=== PATIENT | female | born 1975 | race Two or more races ===

== ENCOUNTER 2017-06-30 14:26 | Emergency (ER) | payer OTHER ==
[~2017-06-30] VITALS: Ht 149.9 cm; Wt 57.2 kg
[~2017-06-30 14:26] MED LIST: IBUPROFEN800 MG PO; ORPH100T PO; ULTRACET PO
== END 2017-06-30 17:41 | disposition home or self-care (01) ==
LOC: ER 14:26
DX: M54.5 Low back pain (principal)

== ENCOUNTER 2017-09-15 17:27 | Emergency (ER) | payer OTHER ==
[~2017-09-15] VITALS: Ht 149.9 cm; Wt 57.2 kg
== END 2017-09-15 19:27 | disposition home or self-care (01) ==
LOC: ER 17:27
DX: M79.1 Myalgia (principal)

== ENCOUNTER 2018-03-03 09:35 | Emergency (ER) | payer OTHER ==
[~2018-03-03] VITALS: Ht 149.9 cm; Wt 56.7 kg
== END 2018-03-03 14:13 | disposition home or self-care (01) ==
LOC: ER 09:35
DX: R10.32 Left lower quadrant pain (principal)

== ENCOUNTER 2018-07-27 12:32 | Emergency (ER) | payer OTHER ==
[~2018-07-27] VITALS: Ht 149.9 cm; Wt 59.0 kg
[2018-07-27] MEDS ORDERED: ZITHROMAX500 MG PO (15:09)
[2018-07-27] MEDS ORDERED: FLONASE ALLERG9.9 ML NASAL (15:09)
== END 2018-07-27 15:24 ==
LOC: ER 12:32
DX: J04.0 Acute laryngitis (principal)

== ENCOUNTER 2018-10-28 19:15 | Emergency (ER) | payer OTHER ==
[~2018-10-28] VITALS: Ht 149.9 cm; Wt 54.0 kg
[~2018-10-28 19:15] MED LIST changes: +FLONASE ALLERG9.9 ML NASAL; +ZITHROMAX500 MG PO
== END 2018-10-28 21:18 | disposition home or self-care (01) ==
LOC: ER 19:15
DX: M62.830 Muscle spasm of back (principal)

== ENCOUNTER → 2019-05-25 | Outpatient (CLI) | payer OTHER | END | disposition home or self-care (01) | LOC: MAMO-SONO 08:30 → SONOGRAMA 10:13 | DX: R10.2 Pelvic and perineal pain (principal) ==

== ENCOUNTER 2019-12-23 10:34 | Outpatient (CLI) | payer OTHER | END 2019-12-23 10:44 | disposition home or self-care (01) | LOC: MAMO-SONO 10:34 | PROVIDERS: ATTEND General Practice | DX: Z12.31 Encounter for screening mammogram for malignant neoplasm of breast (principal); Z12.39 Encounter for other screening for malignant neoplasm of breast; R10.13 Epigastric pain ==

== ENCOUNTER 2021-05-17 17:36 | Emergency (ER) | payer OTHER ==
[~2021-05-17] VITALS: Ht 149.9 cm; Wt 61.2 kg
[2021-05-17] MEDS ORDERED: ZYRTEC10 M3 PO (21:03)
[2021-05-17] MEDS ORDERED: NASONEX17 GM NASAL (21:03)
[2021-05-17] MEDS ORDERED: TUSNEL LIQUID178 ML PO (21:03)
== END 2021-05-17 21:12 | disposition home or self-care (01) ==
LOC: ER 17:36
DX: R09.81 Nasal congestion (principal); Z03.818 Encounter for observation for suspected exposure to other biological agents ruled out

== ENCOUNTER 2023-04-18 17:41 | Emergency (ER) | payer OTHER ==
[~2023-04-18] VITALS: Ht 162.6 cm; Wt 58.5 kg
[~2023-04-18 17:41] MED LIST changes: +NASONEX17 GM NASAL; +OSEL75CA PO; +TUSNEL LIQUID178 ML PO; +XANAX2 MG; +ZYRTEC10 M3 PO
[2023-04-18 19:31] LABS: HEMATOCRIT 38.6 % (36.0-45.00); MEAN CELL VOLUME 87.6 fL (80.00-100.00); MEAN CORPUSCULAR HEMOGLOBIN 29.6 pg (27.00-32.0); MEAN CORPUSCULAR HGB CONC 33.7 g/dl (32.0-36.0); PLATELET COUNT 388 K/uL (150-450); RED BLOOD COUNT 4.41 M/uL (4.00-6.00); RED CELL DISTRIBUTION WIDTH 12.7 % (11.5-14.5)
[2023-04-18 19:53] LABS: CALCIUM 9.2 mg/dL (8.5-10.1); CREATININE SERUM 1.1 mg/dL (0.55-1.02); GFR 52.79; POTASSIUM 3.93 mEq/L (3.5-5.1)
== END 2023-04-18 21:06 | disposition home or self-care (01) ==
LOC: ER 17:41
PROVIDERS: General Practice
DX: R21 Rash and other nonspecific skin eruption (principal)